=== PATIENT | female | born 1990 | race Caucasian/White ===

== ENCOUNTER 2024-06-14 14:10 | Emergency (ER) | payer OTHER, SELFPAY ==
--- NOTE | 2024-06-14 14:15 | RT.EKG_ITS ---
APPROVED REPORT Exam: Resting ECG Reason for Exam: Dizziness; near syncope Patient Location: E HR:81 bpm ECG Measurements Heart Rate 81 AXIS UT 149 P 38 QRSd 93 QRS 5 QT 382 T 12 QTc 443 Conclusion Sinus rhythm. 81 normal axis no stemi
[2024-06-14 14:25] VITALS: BP 120/76; PULSE 89; RESP 14; TEMP 36.6; O2SAT 97
[2024-06-14] MEDS: Ondansetron O.D.T. 4 MG TABEF 8 MG PO (15:39)
[2024-06-14] MEDS: Meclizine 25 MG TAB PO (15:39)
[2024-06-14 16:59] VITALS: BP 138/72; PULSE 80; RESP 16; TEMP 36.8; O2SAT 99
--- NOTE | 2024-06-14 17:01 | ED.GENADUL_ITS ---
Discharge Plan Disposition Patient Disposition: Home Condition: Stable Discharge Details Clinical Impression: Vertigo Primary Care Provider: Unknown,Unknown ED Provider: Dayron Wong Home Meds and New Rx's Prescriptions: New ondansetron 4 mg tablet,disintegrating 4 mg PO Q6H PRN (Reason: nausea and vomiting) Qty: 20 0RF meclizine 25 mg tablet 25 mg PO TID PRN (Reason: dizziness) Qty: 30 0RF No Action Ozempic 0.25 mg or 0.5 mg (2 mg/3 mL) pen injector 0.25 mg subcut QWEEK Rx Instructions: for 4 weeks Discharge Instructions Instructions: Vertigo ED Additional Instructions: * Continue medications as prescribed * Increase fluid intake like water and Gatorade * Start [id number] Flonase twice daily * If you have worsening symptoms, not tolerating anything by mouth or other concerns, please return for reevaluation HPI General Date/Time Provider Initiated Documentation: 06/14/24 14:24 . Limitations to Documentation: no limitations . Information obtained by: patient . HPI Narrative: 33-year-old female without significant past medical history presents for evaluation of dizziness. She reports that this started around 1030 this morning. Not associated with headache, visual change or ear ringing. She does report nausea and some vomiting. She states that she feels like she is on a boat. A few days ago she did go [place]. She reports that symptoms are worse with change in position or with blowing her nose Related Data Home Medications ?Medication ?Instructions ?Recorded ?Confirmed meclizine 25 mg tablet 25 mg PO TID PRN dizziness #30 tabs 06/14/24 ondansetron 4 mg disintegrating 4 mg PO Q6H PRN nausea and 06/14/24 tablet vomiting #20 tabs semaglutide 0.25 mg or 0.5 mg (2 0.25 mg subcut QWEEK 06/14/24 06/14/24 mg/3 mL) subcutaneous pen injector (Ozempic) Previous Rx's ?Medication ?Instructions ?Recorded meclizine 25 mg tablet 25 mg PO TID PRN dizziness #30 tabs 06/14/24 ondansetron 4 mg disintegrating 4 mg PO Q6H PRN nausea and 06/14/24 tablet vomiting #20 tabs Allergies Allergy/AdvReac Type Severity Reaction Status Date / Time No Known Allergies Allergy Verified 06/14/24 14:30 General Stated Complaint: Dizzy/Sync HILARIA: 3 Exam Narrative Exam Narrative: Review of Systems: All systems reviewed & are unremarkable except as noted in HPI and below Well-developed, no acute distress NCAT PERRL, normal conjunctiva Horizontal nystagmus, worse when looking right, no vertical nystagmus RRR, no murmur Unlabored respiratory effort Nondistended abdomen no focal neurologic deficits, no past-pointing or dysmetria, normal gait, no ataxia, negative Romberg Course Vital Signs Vital signs: Vital Signs Temperature 36.6 C 06/14/24 14:25 Pulse 89 06/14/24 14:25 Respiratory Rate 14 06/14/24 14:25 Blood Pressure 120/76 06/14/24 14:25 Pulse Oximetry 97 06/14/24 14:25 Temperature 36.8 C 06/14/24 16:59 Temperature Source Temporal Artery Scan 06/14/24 14:25 Pulse 80 06/14/24 16:59 Respiratory Rate 16 06/14/24 16:59 Respiratory Effort Normal 06/14/24 15:48 Respiratory Depth Normal 06/14/24 15:48 Blood Pressure 138/72 06/14/24 16:59 Blood Pressure Position Sitting 06/14/24 14:25 Pulse Oximetry 99 06/14/24 16:59 Oxygen Delivery Method Room Air 06/14/24 14:25 Oxygen Flow Rate 0 06/14/24 14:25 Pain Level 0 06/14/24 16:59 Medical Decision Making Emergent evaluation of vertigo and vomiting. The patient is not having any signs or symptoms concerning for central etiology of vertigo. She did not have a headache or any acute onset of symptoms that would be concerning for an intracranial process such as a subarachnoid hemorrhage. The patient has a reassuring neurologic examination I suspect that this is peripheral vertigo, likely induced by recent swimming in a [place]. She was provided Zofran and meclizine. She did get an EKG which was reviewed and independently interpreted. This was a sinus rhythm without dysrhythmia or acute ischemic changes. After reevaluation, the patient has stopped vomiting, is tolerating p.o. and reports improvement in her dizziness though it is not completely resolved. I recommend starting Flonase daily, prescriptions for meclizine and Zofran were sent to the pharmacy. Strict return precautions advised. Quality:SDOH Health Related Social Needs: No Data to Display PFSH All Active Problems Vertigo (Acute) Social History Smoking/Tobacco Use Status: Never Smoking risk assessment performed?: Yes Alcohol Intake: never Drug use: Never Substance use type: does not use Housing: house Do you feel safe at home: Yes Do you feel safe in your relationship?: Yes
--- NOTE | 2024-06-16 08:13 | NUR.NOTE ---
Access chart to reconcile EKG orders to the EKGs in [facility]. Duplicate order cancelled. Nursing Note:
== END 2024-06-14 17:06 | disposition home or self-care (01) ==
PROVIDERS: Emergency Provider Emergency Medicine
DX: R42 Dizziness and giddiness (principal); R11.2 Nausea with vomiting, unspecified
CPT/HCPCS: 93005; 99283; 93010